=== PATIENT | female | born 1965 | race Caucasian/White ===

== ENCOUNTER 2016-07-09 18:23 | Emergency (ER) | payer OTHER ==
[2016-07-09 22:28] VITALS: BP 130/74
== END 2016-07-09 22:28 | disposition home or self-care (01) ==
LOC: ED 18:23
DX: G44.209 Tension-type headache, unspecified, not intractable (principal); E78.00 Pure hypercholesterolemia, unspecified
CPT/HCPCS: J1885; J2765

== ENCOUNTER 2016-11-27 16:14 | Emergency (ER) | payer OTHER ==
[~2016-11-27] VITALS: Ht 160 cm; Wt 79.5 kg
[2016-11-27 18:06] VITALS: BP 111/85
== END 2016-11-27 18:06 | disposition home or self-care (01) ==
LOC: ED 16:14
DX: S82.831A Other fracture of upper and lower end of right fibula, initial encounter for closed fracture (principal); E66.9 Obesity, unspecified; E78.00 Pure hypercholesterolemia, unspecified; X58.XXXA Exposure to other specified factors, initial encounter; Y93.89 Activity, other specified; Y99.8 Other external cause status; Y92.89 Other specified places as the place of occurrence of the external cause

== ENCOUNTER 2019-04-25 11:05 | Emergency (ER) | payer OTHER ==
[~2019-04-25] VITALS: Ht 160 cm; Wt 81.2 kg
[2019-04-25 11:27] VITALS: Ht 160 cm; Wt 81.2 kg
[2019-04-25 14:04] LABS: UA SPECIFIC GRAVITY >=1.030 (1.005-1.035); microscopic required? YES; urine erythrocyte 3+ (NEGATIVE)
[2019-04-25 14:48] VITALS: BP 104/81
== END 2019-04-25 14:48 | disposition home or self-care (01) ==
LOC: ED 11:05
DX: N39.0 Urinary tract infection, site not specified (principal); E78.00 Pure hypercholesterolemia, unspecified; E66.9 Obesity, unspecified; Z68.31 Body mass index [BMI] 31.0-31.9, adult; Z98.51 Tubal ligation status